=== PATIENT | female | born 1945 | race Caucasian/White ===

== ENCOUNTER 2020-02-19 11:55 | Emergency (ER) | payer BC ==
[~2020-02-19] VITALS: Ht 149.9 cm; Wt 74.8 kg
[2020-02-19 12:06] VITALS: BP_SYST 131
[2020-02-19] MEDS: BACITRACIN ZINC 15 GM TOPICAL OINTMENT TP ONE (12:51)
[2020-02-19] MEDS ORDERED: BACITRACIN 1 GM OINT TP ONE (12:54)
[2020-02-19 15:20] VITALS: BP_SYST 128
== END 2020-02-19 15:22 | disposition home or self-care (01) ==
LOC: SED 11:55
DX: S01.81XA Laceration without foreign body of other part of head, initial encounter (principal); I10 Essential (primary) hypertension; Z88.8 Allergy status to other drugs, medicaments and biological substances; W01.0XXA Fall on same level from slipping, tripping and stumbling without subsequent striking against object, initial encounter; Y93.89 Activity, other specified; Y92.89 Other specified places as the place of occurrence of the external cause; Y99.8 Other external cause status
CPT/HCPCS: 70450-TC; 72125-TC; 73560-TC; 99285